=== PATIENT | female | born 1980 | race Two or more races ===

== ENCOUNTER → 2020-05-09 | Outpatient (CLI) | payer MEDICAID ==
[~2020-05-09] MED LIST: PNV1TABL50 PO
== END | disposition home or self-care (01) ==
LOC: LAB 12:05
PROVIDERS: ATTEND Obstetrics & Gynecology
DX: Z01.812 Encounter for preprocedural laboratory examination (principal); Z20.822 Contact with and (suspected) exposure to COVID-19
CPT/HCPCS: 87426